=== PATIENT | female | born 1970 | race African-American/Black ===

== ENCOUNTER 2023-06-03 10:15 | Emergency (ER) | payer MEDICARE, SELFPAY ==
[2023-06-03 10:21] VITALS: BP 159/94
[2023-06-03 10:35] LABS: % Basophils 0.4 % (0-2); % Eosinophils 2.3 % (0-6); % Immature Granulocytes 0.4 % (0-0.5); % Lymphocytes 39.3 % (20.5-51.1); % Monocytes 7.5 % (1.7-9.3); % Neutrophils 50.1 % (42.2-75.2); Absolute Eosinophils 0.1 10^3/uL (0-0.7); Absolute Lymphocytes 2.1 10^3/uL (1.2-3.4); Absolute Monocytes 0.4 10^3/uL (0.1-0.6); Absolute Neutrophils 2.6 10^3/uL (1.4-6.5); Hematocrit 38.8 % (37.0-47.0); Mean Corp Hgb Conc. 33.5 g/dL (33.0-37.0); Mean Corpuscular Hgb 28.6 pg (27.0-31.0); Mean Corpuscular Volume 85.5 fL (81.0-99.0); Mean Platelet Volume 10.6 fL (7.4-10.4); Nucleated Red Blood Cells % 0 %; Platelet Count 300 10^3/uL (130-400); Red Blood Cell Count 4.54 10^6/uL (4.20-5.40); Red Cell Dist. Width 13.4 % (11.5-14.5); White Blood Cell Count 5.2 10^3/uL (4.8-10.8)
[2023-06-03 11:26] LABS: D-Dimer 0.39 ug/mlFEU (0.00-0.50)
[2023-06-03 11:41] LABS: ALT (SGPT) 35 U/L (0-35); AST (SGOT) 31 U/L (14-36); Albumin 4.5 g/dl (3.5-5.0); Alkaline Phosphatase 79 U/L (38-126); Blood Urea Nitrogen 16 mg/dl (7-17); Calcium 10.3 mg/dl (8.4-10.2); Carbon Dioxide 24 mmol/L (22-30); Chloride 106 mmol/L (98-107); Glucose 106 mg/dl (70-99); Potassium 4.5 mmol/L (3.5-5.1); Sodium 139 mmol/L (135-145); Total Bilirubin 0.5 mg/dl (0.2-1.3); Total Protein 7.8 g/dl (6.3-8.2); eGFR > 60.00
--- NOTE | 2023-06-03 11:46 | ED.GENMED ---
History of Present Illness
General
Chief Complaint: Chest Pain
Source: patient
Exam Limitations: none
Time Seen by Provider: 06/03/23 11:45
Nursing documentation reviewed up to this point in time: agreed with
Travel History
Have you had any contact with someone who has COVID-19?: No
Do you have any symptoms of coronavirus? Fever > 100 degrees, chills, cough, shortness of breath, sore throat, loss of taste or smell, muscle aches, or headache?: No
History of Present Illness
History of Present Illness:
52-year-old female with history of PE 02/2022 was on Eliquis but that was discontinued after a hematology clearance in November 2022. Patient states she has had seconds worth of stabbing chest pains from mid to right upper chest wall since
yesterday. She states it feels similar to when she had a PE. She admits to being extremely anxious about her health as she has a 13-year-old daughter. She denies shortness of breath. She states she may have strained her chest wall as she has
been doing a lot of cleaning lately. She 'just wants to be sure.' The chest pain is not there presently.
Past History
Past History
ED Past Medical History: Asthma, GERD and Other (Pulmonary emboli)
ED Past Surgical History: Gynecological (Ovarian cyst removal) and Orthopedic (Torn ligament repair and finger)
Social History
Tobacco: Non-smoker
Alcohol: Occasional
Drug: None
Personal: Single
Living: with family
Employment: Employed
Family History
Family History: Cancer (Father with metastatic prostate cancer); Negative CAD or Sudden
Review of Systems
Review of Systems
Allergies reviewed?: Yes
All Other Systems: ROS reviewed and negative except as documented in HPI and ROS
Constitutional: Denies fever
Respiratory: Denies trouble breathing
Cardiac: Reports chest pain; Denies diaphoresis or palpitations
ABD/GI: Denies abdominal pain or nausea
: Denies dysuria or difficulty voiding
Musculoskeletal: Reports no symptoms
Skin: Reports no symptoms
Neurological: Reports no symptoms
Phy Exam
Physical Exam
Physical Exam:
GENERAL: No acute distress. A&Ox3.
CONSTITUTIONAL: Afebrile.
EYES: Clear, conjunctivae normal
ENMT: moist mucus membranes, Pharynx nl
RESPIRATORY: Regular respirations, nonlabored, lungs clear.
CARDIOVASCULAR: Regular rate and rhythm, no murmurs, no rubs.
GI: Soft, nontender, normal BS
MUSCULOSKELETAL: Moves with ease. Well perfused.
SKIN: Warm, dry, normal
PSYCH: Normal mood and affect. Well kept, interactive and appropriate
NEUROLOGIC: Awake, alert and oriented. No focal neurological deficits.
Scores
Heart Score for Chest Pain Patients
STEMI patient?: Not applicable
Course
Orders/Labs/Results
Orders:
Orders
06/03/23 10:16
EKG [Electrocardiogram (*1)] Urgent
Reason for Study: Chest Pain
EKG- Treatment ONCE
06/03/23 10:29
Complete Blood Count/With Diff Urgent
Comprehensive Metabolic Panel Urgent
D-Dimer Urgent
Abnormal Lab Results
06/03/23
10:29
MPV 10.6 H fL
(7.4-10.4)
Glucose 106 H mg/dl
(70-99)
Calcium 10.3 H mg/dl
(8.4-10.2)
06/03/23 10:29
06/03/23 10:29
Vital Signs
Initial and Last Documented VS:
Initial Vital Signs
Temp Pulse Resp BP Pulse Ox
98.2 F 74 16 159/94 100
06/03/23 10:21 06/03/23 10:21 06/03/23 10:21 06/03/23 10:21 06/03/23 10:21
Last Documented Vital Signs
Temp Pulse Resp BP Pulse Ox
98.2 F 70 16 147/96 97
06/03/23 10:21 06/03/23 13:02 06/03/23 13:02 06/03/23 13:02 06/03/23 13:02
MDM/Problems Addressed
Differential Diagnosis Includes:
Musculoskeletal pain, PE, ACS, anxiety
MDM/Problems Addressed:
52-year-old female with history of PE 02/2022 was on Eliquis but that was discontinued after a hematology clearance in November 2022. Patient states she has had seconds worth of stabbing chest pains from mid to right upper chest wall since
yesterday. She states it feels similar to when she had a PE. She admits to being extremely anxious about her health as she has a 13-year-old daughter. She denies shortness of breath. She states she may have strained her chest wall as she has
been doing a lot of cleaning lately. She 'just wants to be sure.' The chest pain is not there presently.
11:47 AM
Afebrile, heart rate in the 70s, pulse ox 100% room air
EKG NSR
CBC normal
CMP normal
Troponin normal
12:44 PM
Patient reassured no sign of PE, she states she is very relieved and admits to being extremely anxious about her health
*EKG
Interpreted by ED Provider?: Yes
EKG Intrepretation Date: 06/03/23
Interpretation: normal
Rate: normal
Rhythm: sinus
Early: normal axis
Interval: normal interval
QRS Pattern: normal QRS
Ischemia: no ischemia
*Critical Care Note
Total Time (30-74mins, 75-104mins- exclusive of procedures): Not Applicable
ED Attending Note
-
Portions of this chart may have been created with voice recognition software.� Occasional wrong word or��sound alike� substitutions may have occurred due to the inherent limitations of voice recognition software.
Discharge Plan
Departure
Patient Disposition: Home (Routine Discharge)
Date of Disposition: 06/03/23
Time of Disposition: 12:46
Patient with high blood pressure during this ER visit?: No
Condition: Good
Discharge Problem:
Atypical chest pain
Instructions: Chest Pain That Is Not Caused by the Heart (DC), Musculoskeletal Pain
Prescriptions:
No Action
lorazepam 0.5 mg Tablet
0.5 mg PO .BID PRN PRN (Reason: anxiety) Qty: 7 0RF
Eliquis 5 mg Tablet
10 mg PO BID Qty: 60 0RF
Rx Instructions:
10 mg twice a day for 7 days, then 5 mg twice a day for 6 months
Referrals:
Sylvie Torres MD [Family Provider] - As needed
Activity Restrictions/Additional Instructions:
As we discussed, there is no indication of pulmonary embolism and your workup here today
See your family doctor if your symptoms are not gone within the next week.
You may try ibuprofen 600 mg, with food, every 6 hours over the next day or 2 to see if it helps.
Interventions
Interventions:
*Risk Screen - Suicide Last Done: 06/03/23 10:21
*General Assessment Last Done: 06/03/23 10:21
*Neglect/Abuse Screening Last Done: 06/03/23 10:21
*Nursing Disposition Last Done: 06/03/23 13:02
ED- Cardiac Assessment Last Done: 06/03/23 11:58
Discharge Date and Time
Discharge Date/Time: 06/03/23 13:03
Print Language: SLOVENIAN
[2023-06-03 13:02] VITALS: BP 147/96
== END 2023-06-03 13:03 | disposition home or self-care (01) ==
LOC: EMR 10:15
PROVIDERS: Physician Assistant; EMERGENCY PHYSICIAN Student in an Organized Health Care Education/Training Program; FAMILY PHYSICIAN Family Medicine
DX: R07.89 Other chest pain (principal); F41.9 Anxiety disorder, unspecified; K21.9 Gastro-esophageal reflux disease without esophagitis; J45.909 Unspecified asthma, uncomplicated; M48.00 Spinal stenosis, site unspecified; K58.9 Irritable bowel syndrome, unspecified; Z86.711 Personal history of pulmonary embolism; Z86.16 Personal history of COVID-19; Z91.018 Allergy to other foods; Z88.8 Allergy status to other drugs, medicaments and biological substances; Z91.048 Other nonmedicinal substance allergy status
CPT/HCPCS: 99283; 80053; 85025; 85379; 93005

== ENCOUNTER 2024-06-08 10:59 | Emergency (ER) | payer MEDICARE, SELFPAY ==
[2024-06-08 11:16] VITALS: BP 129/92
[2024-06-08 11:57] LABS: % Basophils 0.5 % (0-2); % Eosinophils 2.7 % (0-6); % Immature Granulocytes 0.2 % (0-0.5); % Lymphocytes 28.8 % (20.5-51.1); % Monocytes 6.8 % (1.7-9.3); Absolute Eosinophils 0.2 10^3/uL (0-0.7); Absolute Lymphocytes 1.7 10^3/uL (1.2-3.4); Absolute Monocytes 0.4 10^3/uL (0.1-0.6); Absolute Neutrophils 3.6 10^3/uL (1.4-6.5); Hematocrit 37.4 % (37.0-47.0); Hemoglobin 12.5 g/dL (12.0-16.0); Mean Corp Hgb Conc. 33.4 g/dL (33.0-37.0); Mean Corpuscular Hgb 28.7 pg (27.0-31.0); Mean Corpuscular Volume 85.8 fL (81.0-99.0); Nucleated Red Blood Cells % 0 %; Platelet Count 269 10^3/uL (130-400); Red Blood Cell Count 4.36 10^6/uL (4.20-5.40); Red Cell Dist. Width 13.6 % (11.5-14.5); White Blood Cell Count 5.9 10^3/uL (4.8-10.8)
[2024-06-08 12:08] LABS: APTT 28.8 Sec (23.4-35.0)
[2024-06-08 12:10] LABS: COVID-19 Antigen Negative (Negative)
[2024-06-08 12:16] LABS: ALT (SGPT) 53 U/L (0-35); AST (SGOT) 30 U/L (14-36); Albumin 4.4 g/dl (3.5-5.0); Alkaline Phosphatase 67 U/L (38-126); Blood Urea Nitrogen 14 mg/dl (7-17); Calcium 9.9 mg/dl (8.4-10.2); Carbon Dioxide 26 mmol/L (22-30); Chloride 107 mmol/L (98-107); Glucose 108 mg/dl (70-99); Potassium 4.3 mmol/L (3.5-5.1); Sodium 142 mmol/L (135-145); Total Bilirubin 0.5 mg/dl (0.2-1.3); Total Protein 7.1 g/dl (6.3-8.2); eGFR > 60.00
--- NOTE | 2024-06-08 12:31 | ED.GENMED ---
History of Present Illness
General
Chief Complaint: Breathing Problem
Source: patient
Exam Limitations: none
Time Seen by Provider: 06/08/24 12:23
History of Present Illness
History of Present Illness:
53-year-old female presents complaining of progressively worsening shortness of breath. This has been worsening over the past 4 to 5 days. She has a history of pulmonary embolism. She stopped her blood thinners based off the doctor's
recommendation about 7 months ago. There was no identifiable cause for her prior pulmonary embolism. She did see a barman. She denies leg swelling or calf pain recently. Her shortness of breath is very similar to what she experienced when
she had her pulmonary embolism in the past. No recent travel for her. No other complaints. She denies a fever. She also has a history of asthma
Past History
Past History
ED Past Medical History: Asthma, GERD and Other (Pulmonary emboli)
ED Past Surgical History: Gynecological (Ovarian cyst removal) and Orthopedic (Torn ligament repair and finger)
Social History
Tobacco: Non-smoker
Alcohol: Occasional
Drug: None
Personal: Single
Living: with family
Employment: Employed
Family History
Family History: Cancer (Father with metastatic prostate cancer); Negative CAD or Sudden
Phy Exam
Physical Exam
Physical Exam:
General: Well-appearing female no acute respiratory distress
HEENT: Normocephalic atraumatic heart: Regular rate and rhythm
Lungs: Clear no wheeze
Abdomen: Soft nontender nondistended
Extremities: No cyanosis or edema
Scores
Heart Failure Risk
Heart Failure Risk Score: Not Applicable
Course
Orders/Labs/Results
Orders:
Orders
06/08/24 11:38
COVID-19 Antigen Urgent
Source: Nasal Swab
Complete Blood Count/With Diff Urgent
Comprehensive Metabolic Panel Urgent
PTT Urgent
Influenza A+B Rapid Molecular Urgent
[facility] Source: Nasal Swab
Specimen Description:
06/08/24 12:31
CT Chest PE Study Urgent
Comment:
Reason For Exam: sob, history of PE
Abnormal Lab Results
06/08/24
11:38
MPV 11.0 H fL
(7.4-10.4)
Glucose 108 H mg/dl
(70-99)
ALT 53 H U/L
(0-35)
06/08/24 11:38
06/08/24 11:38
Vital Signs
Initial and Last Documented VS:
Initial Vital Signs
Temp Pulse Resp BP Pulse Ox
98.3 F 72 18 129/92 100
06/08/24 11:16 06/08/24 11:16 06/08/24 11:16 06/08/24 11:16 06/08/24 11:16
Last Documented Vital Signs
Temp Pulse Resp BP Pulse Ox
98.3 F 72 18 129/92 100
06/08/24 11:16 06/08/24 11:16 06/08/24 11:16 06/08/24 11:16 06/08/24 11:16
MDM/Problems Addressed
Differential Diagnosis Includes:
Shortness of breath. Consider asthma versus pneumonia versus pulmonary embolism. She has a history of pulmonary embolism not currently on blood thinners. This feels similar to her prior embolism. Vital signs are stable. COVID and flu are
negative. Labs reviewed without significant finding but will order PE study
*Critical Care Note
Total Time (30-74mins, 75-104mins- exclusive of procedures): Not Applicable
Update Note
Update Note:
CT PE study negative. Patient reassured. Labs reviewed without significant finding. Question possible underlying asthma causing shortness of breath.
ED Attending Note
-
Portions of this chart may have been created with voice recognition software.� Occasional wrong word or��sound alike� substitutions may have occurred due to the inherent limitations of voice recognition software.
Discharge Plan
Departure
Patient Disposition: Home (Routine Discharge)
Date of Disposition: 06/08/24
Time of Disposition: 13:36
Patient with high blood pressure during this ER visit?: No
Discharge Problem:
Asthma
Instructions: Asthma, Adult (DC)
Prescriptions:
New
albuterol sulfate [Ventolin HFA] 90 mcg/actuation HFA aerosol inhaler
1 inh inhalation Q6H PRN (Reason: shortness of breath or wheezing) Qty: 1 0RF
No Action
lorazepam 0.5 mg Tablet
0.5 mg PO .BID PRN PRN (Reason: anxiety) Qty: 7 0RF
Eliquis 5 mg Tablet
10 mg PO BID Qty: 60 0RF
Rx Instructions:
10 mg twice a day for 7 days, then 5 mg twice a day for 6 months
Referrals:
Sylvie Torres MD [Family Provider] -
Activity Restrictions/Additional Instructions:
Use inhaler if needed. Return here for worsening symptoms otherwise follow-up with your doctor
Interventions
Interventions:
*Risk Screen - Suicide Last Done: 06/08/24 11:17
*General Assessment Last Done: 06/08/24 11:17
*Neglect/Abuse Screening Last Done: 06/08/24 11:17
*ED COVID-19 Vaccine History Last Done: 06/08/24 11:17
Discharge Date and Time
Print Language: POLISH
[2024-06-08 12:41] VITALS: BP 131/86; BMI 33.3
[2024-06-08 13:38] VITALS: BP 125/76
[2024-06-08 13:40] VITALS: BP 128/80
== END 2024-06-08 14:01 | disposition home or self-care (01) ==
LOC: EMR 10:59
PROVIDERS: EMERGENCY PHYSICIAN Emergency Medicine; FAMILY PHYSICIAN Family Medicine
DX: J45.901 Unspecified asthma with (acute) exacerbation (principal); Z11.52 Encounter for screening for COVID-19; K21.9 Gastro-esophageal reflux disease without esophagitis; Z86.711 Personal history of pulmonary embolism; Z91.018 Allergy to other foods; Z88.8 Allergy status to other drugs, medicaments and biological substances; Z91.048 Other nonmedicinal substance allergy status
CPT/HCPCS: 99284; 71275; 80053; 85025; 85730; 87502; 87811; Q9967